=== PATIENT | female | born 2000 | race African-American/Black ===

== ENCOUNTER → 2020-03-30 | Outpatient (CLI) | payer OTHER | LOC: LAB 09:31 | PROVIDERS: ATTEND Family Medicine | DX: Z20.89 Contact with and (suspected) exposure to other communicable diseases (principal) | CPT/HCPCS: 36415; 84484 ==

== ENCOUNTER → 2020-04-09 | Outpatient (CLI) | payer OTHER ==
--- NOTE | 2020-04-09 18:30 | RAD ---
PROCEDURE: XR HAND_RIGHT 3 VIEWS STUDY DATE: 04/09/2020 CLINICAL INDICATION / HISTORY: Reason: RIGHT HAND PAIN / Spl. Instructions: / History: . TECHNIQUE: PA, lateral and oblique views of the right hand. COMPARISON: None FINDINGS: No fracture or dislocation is identified. The bone density is normal. The joint spaces are maintained, and there are no erosions to suggest an inflammatory arthropathy. The soft tissues are un remarkable. IMPRESSION: No acute osseous abnormality. Electronically signed by: Bebe Nagel MD (04/09/2020 6:27 PM) [id number]
== END ==
LOC: RAD 15:46
PROVIDERS: ATTEND Nurse Practitioner Family
DX: M79.641 Pain in right hand (principal)
CPT/HCPCS: 73130

== ENCOUNTER 2020-10-21 17:49 | Emergency (ER) | payer OTHER ==
[~2020-10-21] VITALS: Ht 165.1 cm; Wt 60.2 kg
[2020-10-21 19:00] VITALS: BP 128/83
--- NOTE | 2020-10-21 21:28 | PHYS DOC ---
General Adult EDM: Chief Complaint: BACK PAIN OR INJURY HPI: HPI: Patient is a 20-year-old female who presents with asthma exacerbation. Patient states that last night she was up coughing and unable to lay flat due to cough and shortness of breath. Patient has a history of asthma. Patient has moved he re to go to [place] from [place] and did not bring her machine with her for treatments. Patient does have her albuterol and Flovent. Patient states that her inhalers were not providing much relief. Patient does not appear to be any respiratory distress. Denies fever. "This feels like my asthma is acting up" patient's only history is asthma. (LUIZA LIMA APRN) Review of Systems: Review of Systems: Constitutional: Denies fever or chills Eyes: Denies change in visual acuity HENT: Denies nasal congestion or sore throat Respiratory: Reports cough or shortness of breath Cardiovascular: Denies chest pain or edema GI: Denies abdominal pain, nausea, vomiting, bloody stools or diarrhea : Denies dysuria Musculoskeletal: Denies back pain or joint pain Integument: Denies rash Neurologic: Denies headache, focal weakness or sensory changes Endocrine: Denies polyuria or polydipsia Lymphatic: Denies swollen glands Psychiatric: Denies depression or anxiety (LUIZA LIMA APRN) Physical Exam: PE: Constitutional: Well developed, well nourished, no acute distress, non-toxic appearance. [] HENT: Normocephalic, atraumatic, bilateral external ears normal, oropharynx moist, no oral exudates, nose normal. [] Eyes: PERRLA, EOMI, conjunctiva normal, no discharge. [] Neck: Normal range of motion, no tenderness, supple, no stridor. [] Cardiovascular:Heart rate regular rhythm, no murmur [] Lungs & Thorax: Bilateral breath sounds clear to auscultation [] Abdomen: Bowel sounds normal, soft, no tenderness, no masses, no pulsatile masses. [] Skin: Warm, dry, no erythema, no rash. [] Back: No tenderness, no CVA tenderness. [] Extremities: No tenderness, no cyanosis, no clubbing, ROM intact, no edema. [] Neurologic: Alert and oriented X 3, normal motor function, normal sensory function, no focal deficits noted. [] Psychologic: Affect normal, judgement normal, mood normal. [] (LUIZA LIMA APRN) Current Patient Data: Labs: Laboratory Tests Test 10/21/20 21:14 POC Urine HCG, Qualitative hcg negative (Negative) (LUIZA LIMA APRN) EKG: EKG: [] (LUIZA LIMA APRN) Radiology/Procedures: Radiology/Procedures: [] (LUIZA LIMA APRN) Heart Score: C/O Chest Pain: No Risk Factors: Risk Factors: DM, Current or recent (<one month) smoker, HTN, HLP, family history of CAD, obesity. Risk Scores: Score 0 - 3: 2.5% MACE over next 6 weeks - Discharge Home Score 4 - 6: 20.3% MACE over next 6 weeks - Admit for Clinical Observation Score 7 - 10: 72.7% MACE over next 6 weeks - Early Invasive Strategies (LUIZA LIMA APRN) Course & Med Decision Making: Course & Med Decision Making Pertinent Labs and Imaging studies reviewed. (See chart for details) [] 20-year-old female presents with asthma exacerbation. Patient currently uses albuterol inhaler along with her Flovent. Patient states that last night she was up coughing, wheezing and short of breath. Patient states that she was unable to lay flat due to coughing. Patient reports that her inhalers were not providing any relief. Patient does use a machine for RT treatments at home but left it in [place]. Patient is requesting a RT treatment and steroids. States that she has enough of her inhalers at home and also has a refill from her PCP on file at [facility]. Patient is hemodynamically stable. Lungs are clear bilaterally. Patient does not appear to be in any respiratory distress. RT breathing treatment ordered, dexamethasone, 10 mg. Advised patient to call PCP to see if she can call in a prescription also for her respiratory treatment and machine for the [facility] in [facility]. Patient is appreciative and okay with discharge plan to follow-up with PCP. Patient given strict return precautions if symptoms worsen. (LUIZA LIMA APRN) Dragon Disclaimer: Dragon Disclaimer: This electronic medical record was generated, in whole or in part, using a voice recognition dictation system. (LUIZA LIMA APRN) Departure Departure: Impression: Primary Impression: Asthma exacerbation Qualified Codes: J45.41 - Moderate persistent asthma with (acute) exacerbation Disposition: 01 HOME / SELF CARE / HOMELESS Condition: STABLE Referrals: PCP,NO (PCP) Patient Instructions: Asthma, Adult, [id number] Additional Instructions: You were seen in the emergency room for asthma exacerbation. You were given a breathing treatment along with steroids to help with your breathing. You have both of your inhalers on hand at home along with 2 refills. Please call your PCP to have them get you a breathing machine for at home for respiratory treatments. Please return to the emergency room if your symptoms worsen or you have any concerns. EMERGENCY DEPARTMENT GENERAL DISCHARGE INSTRUCTIONS Thank you for coming to [facility] (ED) today and trusting us with you care. We trust that you had a positivie experience in our Emergency Department. If you wish to speak to the department management, you may call the director at [phone]. YOUR FOLLOW UP INSTRUCTIONS ARE FOLLOWS: 1. Do you have a private Doctor? If you do not have a private doctor, please ask for a resource list of physicians or clinics that may be able to assist you with follow up care. 2. The Emergency Physician has interpreted your x-rays. The X-Ray specialist will also review them. If there is a change in the findings, you will be notified in 48 hours when at all possible. 3. A lab test or culture has been done, your results will be reviewed and you will be notified if you need a change in treatment. ADDITIONAL INSTRUCTIONS AND INFORMATION: 1. Your care today has been supervised by a physician who is specially trained in emergency care. Many problems require more than one evaluation for a complete diagnosis and treatment. We recommend that you schedule your follow up appointment as recommended to ensure complete treatment of you illness or injury. If you are unable to obtain follow up care and continue to have a problem, or if your condition worsens, we recommend that you return to the ED. 2. We are not able to safely determine your condition over the phone nor are we able to give sound medical advice over the phone. For these safety reasons, if you call for medical advice we will ask you to come to the ED for further evaluation. 3. If you have any questions regarding these discharge instructions please call the ED at [phone]. SAFETY INFORMATION: In the interest of safety, wellness, and injury prevention; we encourage you to wear your sealbelt, if you smoke; quite smoking, and we encourage family to use a protective helmet for bicycling and other sporting events that present an increased risk for head injury. IF YOUR SYMPTOMS WORSEN OR NEW SYMPTOMS DEVELOP, OR YOU HAVE CONCERNS ABOUT YOUR CONDITION; OR IF YOUR CONDITION WORSENS WHILE YOU ARE WAITING FOR YOUR FOLLOW UP APPOINTMENT; EITHER CONTACT YOUR PRIMARY CARE DOCTOR, THE PHYSICIAN WHOSE NAME AND NUMBER YOU WERE GIVEN, OR RETURN TO THE ED IMMEDIATELY. Attending Signature Attending Signature I have participated in the care of this patient and I have reviewed and agree with all pertinent clinical information above including history, exam, and recommendations. (IRA MACKAY MD) LUIZA LIMA APRN Oct 21, 2020 21:28 IRA MACKAY MD Oct 22, 2020 05:59
[2020-10-21] MEDS ORDERED: DEXAMETHASONE SOD PHOS 10 MG/ML VIAL. PO ONE (22:30)
[2020-10-21] MEDS ORDERED: ALBUTEROL SULFATE 2.5 MG/3 ML NEBU. NEB ONE (22:30)
[2020-10-21] MEDS ORDERED: DEXAMETHASONE SOD PHOS 10 MG/ML VIAL. IVP ONE (22:30)
== END 2020-10-21 22:05 | disposition home or self-care (01) ==
LOC: ER 17:49
DX: J45.41 Moderate persistent asthma with (acute) exacerbation (principal)
CPT/HCPCS: 81025; 99283; J1100